=== PATIENT | female | born 1975 | race African-American/Black ===

== ENCOUNTER 2019-04-17 11:36 | Emergency (ER) | payer MEDICAID ==
[~2019-04-17] VITALS: Ht 167.6 cm; Wt 92.4 kg
[2019-04-17 11:39] VITALS: Ht 167.6 cm; Wt 92.4 kg
--- NOTE | 2019-04-17 12:31 | ERD ---
ER Documentation Chief Complaint Chief Complaint bilateral feet swelling ( not taking her bp medication) HPI 43-year-old female history of hypertension who has not been taking her blood pressure medication for "some time ". Patient notes elevated blood pressure and bilateral foot swelling. She denies any chest pain or shortness of breath, no headache no exertional symptoms. She denies any recent travel immobilization or calf pain. She states that the foot swelling is worse in the evening and better when she puts her feet up. ROS All systems reviewed and are negative except as per history of present illness. Medications Home Meds Active Scripts Hydrochlorothiazide* (Hydrochlorothiazide*) 25 Mg Tab, 25 MG PO DAILY, #30 TAB Prov:JAIMIE GALVAN MD 04/17/19 Allergies Allergies: Coded Allergies: lisinopril (Verified Allergy, Unknown, LIP SWELLING, 04/17/19) FmHx Family History: No diabetes, No coronary disease Physical Exam Vitals Vital Signs Date Temp Pulse Resp B/P (MAP) Pulse Ox O2 O2 Flow FiO2 Time Delivery Rate 04/17/19 97 18 175/107 99 Room Air 12:35 (129) 04/17/19 98.6 66 20 199/111 99 11:39 (140) Physical Exam General: Well developed, well nourished, no acute distress Head: Normocephalic, atraumatic. Eyes: Pupils equally reactive, EOM intact ENT: Moist mucous membranes Neck: Supple, no lymphadenopathy Respiratory: Lungs clear bilaterally, no distress Cardiovascular: RRR, no murmurs, rubs, or gallops Abdominal: Soft, non-tender, non-distended, no peritoneal signs : Deferred MSK: no unilateral swelling, 5/5 strength, scant pedal edema Neurologic: Alert and oriented, moving all extremities, normal speech, no focal weakness, no cerebellar signs Skin: No rash Psych: Normal mood Result Diagram: 04/17/19 1214 04/17/19 1214 Results 24 hrs Laboratory Tests Test 04/17/19 12:14 White Blood Count 6.3 10^3/ul Red Blood Count 4.58 10^6/ul Hemoglobin 13.9 g/dl Hematocrit 40.5 % Mean Corpuscular Volume 88.4 fl Mean Corpuscular Hemoglobin 30.3 pg Mean Corpuscular Hemoglobin Concent 34.3 g/dl Red Cell Distribution Width 12.6 % Platelet Count 210 10^3/UL Mean Platelet Volume 11.4 fl Immature Granulocytes % 0.300 % Neutrophils % 56.2 % Lymphocytes % 30.4 % Monocytes % 10.2 % Eosinophils % 2.1 % Basophils % 0.8 % Nucleated Red Blood Cells % 0.0 /100WBC Immature Granulocytes # 0.020 10^3/ul Neutrophils # 3.5 10^3/ul Lymphocytes # 1.9 10^3/ul Monocytes # 0.6 10^3/ul Eosinophils # 0.1 10^3/ul Basophils # 0.1 10^3/ul Nucleated Red Blood Cells # 0.0 10^3/ul Sodium Level 139 mmol/L Potassium Level 4.9 mmol/L Chloride Level 106 mmol/L Carbon Dioxide Level 25 mmol/L Anion Gap 8 Blood Urea Nitrogen 11 mg/dl Creatinine 1.04 mg/dl Est Glomerular Filtrat Rate mL/min 58 mL/min Glucose Level 94 mg/dl Calcium Level 9.1 mg/dl Procedures/MDM LAB INTERPRETATION: I reviewed the laboratory testing and it shows [no evidence of acute process] MEDICAL DECISION MAKING: Clinical exam and history is consistent with asymptomatic hypertension and pedal edema likely secondary to hypertension versus venous insufficiency. No evidence of DVT. Low concern for renal failure though electrolyte laboratory testing would be reasonable. The patient needs to reinitiate antihypertensive therapy. She describes angioedema history with lisinopril. Hydrochlorothiazide seems like an appropriate choice. Primary care follow-up strongly recommended. ER COURSE: * Patient remains well appearing. Risks of rapidly lowering BP outweighs the benefits at this time. * Patient to be DCd with script for HCTZ. CONSULTATION: [None] DISPOSITION PLAN: Discharge with PMD follow up Script: HCTZ 25mg po daily Departure Diagnosis: Primary Impression: Asymptomatic hypertension Additional Impression: Peripheral edema Condition: Stable JAIMIE GALVAN MD Apr 17, 2019 12:31
[2019-04-17] MEDS ORDERED: HYDR25TA6 PO ×2 (12:52→13:10)
[2019-04-17 13:12] VITALS: BP 141/92; PULSE 62; RESP 18
== END 2019-04-17 13:25 | disposition home or self-care (01) ==
LOC: E/R 11:36
DX: I10 Essential (primary) hypertension (principal); R60.0 Localized edema; R40.2142 Coma scale, eyes open, spontaneous, at arrival to emergency department; R40.2362 Coma scale, best motor response, obeys commands, at arrival to emergency department; R40.2252 Coma scale, best verbal response, oriented, at arrival to emergency department
CPT/HCPCS: 80048; 85025; Z7502; 99283